=== PATIENT | female | born 1990 | race Caucasian/White ===

== ENCOUNTER 2023-03-12 03:54 | Inpatient (IN) | payer BC, OTHER ==
[~2023-03-12] VITALS: Ht 170.2 cm; Wt 108.0 kg
[2023-03-12] VITALS (64 sets, daily range): BP systolic 96–146; BP diastolic 55–93; PULSE 55–115; TEMP 98.3–101.6
[~2023-03-12 03:54] MED LIST: LEXAPRO20 MG PO; PRENATAL TABLET PO; VITAMIN D31000 I1 PO
--- NOTE | 2023-03-12 04:05 | NUR ---
PT TO UNIT AMBULATORY WITH SPOUSE WITH CONCERNS OF CTX. PT ORIENTED TO ROOM, CHANGED INTO GOWN, EFMX2 APPLIED, SVE PERFORMED, VS OBTAINED.
[2023-03-12] MEDS ORDERED: LR 1,000 ML IV PRN (04:45)
[2023-03-12] MEDS ORDERED: ROPivacaine PF 0.2% 200 ML IV ONE (07:14)
[2023-03-12] MEDS ORDERED: LR 1,000 ML IV SCH (07:15)
[2023-03-12] MEDS ORDERED: LR & Oxytocin 500 ML IV SCH (07:15)
--- NOTE | 2023-03-12 07:15 | NUR ---
0705- JHON PUENTES IN PATIENTS ROOM FOR EPIDURAL PLACEMENT, PATIENT REPOSITIONED, DIFFICULTY TRACIGN FRH DUE TO MATERNAL POSITION. 708- SINGLE SHOT ADMINISTERED BY JHON PUENTES. 714- PATIENT REPOSITIONED TO WEDGED RIGHT, FHR TRACING CONTINUES
[2023-03-12] MEDS ORDERED: diphenhydrAMINE 50 MG/ML 1 ML VIAL IV PRN (07:45)
[2023-03-12] MEDS ORDERED: Ondansetron 4 MG/2 ML VIAL IV PRN (07:45)
[2023-03-12] MEDS ORDERED: diphenhydrAMINE 25 MG CAP PO PRN (07:45)
[2023-03-12] MEDS ORDERED: ePHEDrine 50 MG/10 ML VIAL IV PRN (07:45)
[2023-03-12] MEDS ORDERED: Naloxone 0.4 MG/ML VIAL IV PRN ×2 (07:45→20:15)
[2023-03-12 08:01] LABS: BASO % 0.1 % (0.0-2.0); EOS % 0.1 % (0.0-4.0); GRAN # 13.3 K/mm3 (1.4-6.5); GRAN % 86.6 % (42.2-75.2); HEMATOCRIT 39.4 % (37.0-47.0); HEMOGLOBIN 13.7 g/dl (12.5-16.0); LYMPH # 1.5 K/mm3 (1.2-3.4); LYMPH % 9.5 % (20.0-51.0); MEAN CELL VOLUME 94 fl (80.0-100.0); MEAN CORPUSCULAR HEMOGLOBIN 33 pg (27-31); MEAN CORPUSCULAR HGB CONC 35 g/dl (33.0-37.0); MEAN PLATELET VOLUME 11.7 fl (7.4-10.4); MONO # 0.5 K/mm3 (0.1-0.6); PLATELET COUNT 192 K/mm3 (130-400); RED BLOOD COUNT 4.21 M/mm3 (4.10-5.30); REDCELL DISTRIBUTION WIDTH-CV 13.2 % (11.5-14.5)
[2023-03-12] MEDS ORDERED: NATURAL IRON65 MG PO (08:04)
[2023-03-12] MEDS ORDERED: VITAMIN B COMPL1 SGL PO (08:04)
--- NOTE | 2023-03-12 09:13 | NUR ---
TO BEDSIDE TO ASSESS PATIENT. SVE 3-4/90/-3, HEAD BALLOTABLE PER . RECOMMENDS WAITING TO BREAK WATER UNTIL HEAD IS APPLIED TO CERVIX AND PITOCIN AUGMENTATION DISCUSSED WITH PATIENT.
--- NOTE | 2023-03-12 14:27 | NUR ---
TO BEDSIDE TO ASSESS PATIENT PROGRESS, SVE /-1. PATIENT RPEOSITONED TO RIGHT LATERAL WITH LEFT LEG IN STIRUP.
--- NOTE | 2023-03-12 15:26 | NUR ---
TO BEDSIDE TO ASSESS PATIENT PROGRESS, SVE /-1. PATIENT REPOSITIONED TO LEFT LATERAL WITH RIGHT LEG IN THE STIRRUP.
--- NOTE | 2023-03-12 16:20 | NUR ---
TO BEDSIDE TO ASSESS PATIENT PROGRESS. SVE /, PATIENT REPOSITIONED TO THRONE POSITION.
--- NOTE | 2023-03-12 17:22 | NUR ---
TO BEDSIDE TO ASSESS PATIENT PROGRESS, SVE /0.
--- NOTE | 2023-03-12 17:53 | NUR ---
BRAYAN TO BEDSIDE TO ASSESS PATIENT PROGRESS, SVE 10/100/+1. DR. SCHMIDT SUGGESTS PATIENT LABOR DOWN, PATIENT REPOSITIONED TO LEFT LATERAL 'FLYING COWGIRL.'
--- NOTE | 2023-03-12 19:00 | NUR ---
EFM ON X2. FHT NOTED TO HAVE RECURRING VARIABLE DECELS. NO VARIABLE DECELS WITH 60 BEAT DECREASE OR LASTING FOR GREATER THAN 60 SECONDS. PT COMPLETE AND GETTING SET UP TO BEGIN PUSHING
--- NOTE | 2023-03-12 19:23 | NUR ---
1844:PER RN RELINQUISHING CARE. PT NOW HAS AN ELEVATED TEMP AND THE FHR IS NOTABLE FOR TACHYCARDIA. DR. SCHMIDT HAS BEEN NOTIFIED AND DIAGNOSED PT WITH CHORIO. DR. SCHMIDT REQUEST TO START PUSHING WITH THE PATIENT AND SHE IS ON THE WAY IN. HER PLAN IS TO ORDER ANTIBIOTICS WHEN SHE ARRIVES. 1899: RN ASSISTED PATIENT IN SETTING UP TO BEGIN PUSHING EFFORTS. SPOUSE AND MOTHER OF PATIENT ASSISTED IN PT POSITIONING. PT TAUGHT BY RN PUSHING TECHNIQUES. STEADY DESCENT NOTED WITH STRONG MATERNAL PUSHING EFFORTS WHILE BEING COACHED BY RN. 1912: DR. BARTH ARRIVED AT ACCOMPANIED BY Aneesh DE LA ROS[place] RN. DR. SCHMIDT EDUCATED PT ON ANTIBIOTICS X2 THAT SHE ORDERED TO TREAT THE DIAGNOSIS OF CHORIO. PT IN AGREEMENT. DR. SCHMIDT REQUESTED FOOT OF BED TO BE REMOVED TO PREPARE FOR DELIVERY. AFTER ROOM/BED SET UP FOR DELIVERY PT CONTINUED TO PUSH WITH STRONG MATERNAL EFFORT COACHED BY DR. SCHMIDT AND RNS. 1918: OF VIABLE FEMALE . PLACED ON MATERNAL ABDOMEN. ROUTINE NRP COMPLETED BY Aneesh ADEN RN. CORD DOUBLE CLAMPED BY DR. SCHMIDT AFTER COMPLETION OF 1 MIN OF LIFE. CORD CUT BY FOB. DR. SCHMIDT AND RN NOTED THE BEGINNING OF QBL. 1922: INTACT PLACENTA DELIVERED BY DR. SCHMIDT. DR. SCHMIDT IDENTIFIED SECOND DEGREE PERINEAL LAC AND BEGAN REPAIR. 1944: FOLLOWING COMPLETION OF REPAIR DR. SCHMIDT REQUESTED RN TO ASSIST WITH FUNDAL RUB. SEVERAL CLOTS EXPRESSED DURING FUNDAL RUB. MINIMAL BLEEDING NOTED AFTER CLOTS EXPRESSED. RN COMPLETED QBL AND REPORTED TO DR. SCHMIDT.
--- NOTE | 2023-03-12 19:30 | NUR ---
FUNDAL HEIGHT ASSESSED. NO MASSAGE COMPLETED R/T REPAIR IN PROGRESS.
[2023-03-12] MEDS ORDERED: Phenylephrine/Mineral Oil/Petrolatum 57 GM TUBE RC PRN (20:15)
[2023-03-12] MEDS ORDERED: Mag/Al Hydrox/Simeth Susp 30 ML CUP PO PRN (20:15)
[2023-03-12] MEDS ORDERED: Measles/Mumps/Rubella Virus Vaccine Live w Diluent 0.5 ML VIAL SQ SCH (20:15)
[2023-03-12] MEDS ORDERED: Loratadine 10 MG TAB PO PRN (20:15)
[2023-03-12] MEDS ORDERED: Magnes Hydrox (MOM) 80 MG/ML 30 ML CUP PO PRN (20:15)
[2023-03-12] MEDS ORDERED: Acetaminophen 500 MG TAB PO SCH (20:15)
[2023-03-12] MEDS ORDERED: Witch Hazel 50% Pads Bulk TUB TP PRN (20:15)
[2023-03-12] MEDS ORDERED: Ibuprofen 800 MG TAB PO SCH (20:15)
[2023-03-12] MEDS ORDERED: traZODone 50 MG TAB PO PRN (21:00)
[2023-03-12] MEDS ORDERED: Methylergonovine 0.2 MG/ML 1 ML AMPUL IM ONE (21:00)
--- NOTE | 2023-03-12 23:15 | NUR ---
PT UP TO BATHROOM VIA [employer] . EPIDURAL REMOVED, BLUE TIP INTACT. PT UNABLE TO VOID AT THIS TIME. ASSISTED WITH PERICARE. PERIPAD, ICE PACK, MESH UNDERWEAR APPLIED, AND CLEAN GOWN ON. PT TRANSFERRED TO VIA [employer]. ORIENTED TO ROOM, INSTRUCTED TO CALL OUT FOR ASSISTANCE TO USE BATHROOM DUE TO LEGS STILL BEING NUMB FROM EPIDURAL. PT VERBALIZED UNDERSTANDING.
[2023-03-13] MEDS ORDERED: Acetaminophen 500 MG TAB PO SCH (03:00)
[2023-03-13 03:15] VITALS: BP 115/68; PULSE 58; TEMP 97.6
[2023-03-13 06:53] VITALS: BP 100/67; PULSE 53; TEMP 97.8
[2023-03-13] MEDS ORDERED: Sennosides/Docusate 8.6-50 MG TAB PO SCH (08:00)
[2023-03-13 09:33] LABS: MEAN CELL VOLUME 93 fl (80.0-100.0); MEAN CORPUSCULAR HGB CONC 36 g/dl (33.0-37.0); MEAN PLATELET VOLUME 10.9 fl (7.4-10.4); PLATELET COUNT 146 K/mm3 (130-400); REDCELL DISTRIBUTION WIDTH-CV 13.4 % (11.5-14.5)
[2023-03-13 09:36] LABS: HEMATOCRIT 29.6 % (37.0-47.0); HEMOGLOBIN 10.5 g/dl (12.5-16.0); MEAN CORPUSCULAR HEMOGLOBIN 33 pg (27-31)
[2023-03-13] MEDS ORDERED: TYLENOL 500MG500 MG PO (11:23)
[2023-03-13 11:59] VITALS: BP 101/62; PULSE 76; TEMP 97.8
[2023-03-13 16:19] VITALS: BP 115/74; PULSE 76; TEMP 98.4
[2023-03-13 21:00] VITALS: BP 114/70; PULSE 67; TEMP 98.1
== END 2023-03-14 11:12 | disposition home or self-care (01) | DRG 805 ==
LOC: LDRO 03:54 → LDR 04:44 → LDRO 06:05 → LDR 06:06 → OB 23:00
PROVIDERS: Obstetrics & Gynecology; ADMIT Student in an Organized Health Care Education/Training Program
PROC: 10E0XZZ Delivery of Products of Conception, External Approach (ICD-10-PCS; principal; 2023-03-12)
PROC: 0KQM0ZZ Repair Perineum Muscle, Open Approach (ICD-10-PCS; 2023-03-12)
DX: O48.0 Post-term pregnancy (principal); O41.1230 Chorioamnionitis, third trimester, not applicable or unspecified; Z37.0 Single live birth; O72.1 Other immediate postpartum hemorrhage; Z3A.40 40 weeks gestation of pregnancy; O99.344 Other mental disorders complicating childbirth; F41.9 Anxiety disorder, unspecified; O99.844 Bariatric surgery status complicating childbirth; O99.284 Endocrine, nutritional and metabolic diseases complicating childbirth; E28.2 Polycystic ovarian syndrome; E53.9 Vitamin B deficiency, unspecified; E55.9 Vitamin D deficiency, unspecified; G43.909 Migraine, unspecified, not intractable, without status migrainosus; O99.892 Other specified diseases and conditions complicating childbirth; O70.1 Second degree perineal laceration during delivery; O76 Abnormality in fetal heart rate and rhythm complicating labor and delivery; Z88.1 Allergy status to other antibiotic agents; Z23 Encounter for immunization
CPT/HCPCS: J0290; J1580; J2210; J2590; J2795; J7120